=== PATIENT | male | born 1960 | race Caucasian/White ===

== ENCOUNTER 2016-11-29 11:06 | Inpatient (IN) ==
[2016-11-29] MEDS ORDERED: 0.9 % Sodium Chloride 1,000 ML IVC ONE ×2 (11:33→12:47)
[2016-11-29 11:41] LABS: Bilirubin,Urine Moderate (Negative); Blood,Urine Trace (Negative); Clarity,Urine Clear (Clear); Color,Urine Dark Yellow (Yellow); Glucose,Urine (UA) >=1000 mg/dL (Normal); Ketones,Urine >=160 mg/dL (Negative); Leukocyte Esterase,Urine Negative (Negative); Nitrite,Urine Negative (Negative); Protein,Urine 100 mg/dL (Neg-Trace); Specific Gravity,Urine > 1.030 (1.010-1.025)
[2016-11-29 11:43] LABS: Hyaline Casts,Urine None Seen per lpf (None-Few); RBC,Urine 0-3 per hpf (0-3); WBC,Urine 0-3 per hpf (0-3)
--- NOTE | 2016-11-29 11:44 | Emergency Department Note ---
Disposition Clinical Impression: Abdominal pain, Pneumonia, Diabetes, Sepsis, Abnormal urinalysis, Kidney stones , Constipation Disposition: Admitted As Inpatient Forms: ED Satisfaction Letter, Work/School Release General Adult HPI - General Chief complaint: ED Abdominal Pain Stated complaint: constipation x3days/abd pain/nausea/fever Source: patient Limitations: no limitations - History of Present Illness HPI Narrative: 56-year-old male reports emergency department complaining of no bowel movement for 3 days.. He reports he is usually very regular. She complains of mild abdominal pain. A fever is noted. There is no history of headache neck stiffness rash or convulsion or confusion no troubles walking talking hearing seeing or speaking. No chest pain or shortness of breath. The patient has had no vomiting but he has had some stool that his stool is been very loose and on occasion. He is not anticoagulated. He denies riley diarrhea. There is no history of back pain or urinary problems. The patient is not diabetic is not take any medication regularly. He denies any previous bowel surgery. He denies any history of abdominal surgery. He reports that having any problems with his bowels is highly unusual for him. Pain Scale: 3 - Related Data Home Medications Medication Instructions Recorded Confirmed No Known Home Drugs 11/29/16 11/29/16 Allergies Allergy/AdvReac Type Severity Reaction Status Date / Time No Known Allergies Allergy Verified 11/29/16 13:49 All systems ED: reviewed and negative except as stated. Past Medical History - Past Medical History Medical history: Reports: myocardial infarction, other Psychiatric history: Reports: no psych history - Social History Smoking Status: Never smoker Smokeless Tobacco Status: No Alcohol use: Reports: occasionally Drug use: Reports: none Physical Exam - General Limitations: no limitations General appearance: alert, in no apparent distress - Head Head exam: atraumatic, normocephalic, normal inspection - Eye Eye exam: Present: normal appearance, PERRL, EOMI. Absent: scleral icterus, conjunctival injection - ENT ENT exam: normal exam, normal oropharynx, mucous membranes moist, TM's normal bilaterally, normal external ear exam - Neck Neck exam: Present: normal inspection, full ROM, trachea midline - Chest Chest inspection: Present: normal inspection, symmetric chest wall rise. Absent : tenderness - Respiratory Respiratory exam: Present: normal lung sounds bilaterally. Absent: respiratory distress, wheezes, accessory muscle use, prolonged expiratory phase - Cardiovascular Cardiovascular exam: Present: regular rate, normal rhythm, normal heart sounds - Abdominal Exam Abdominal exam: Present: soft. Absent: distention, guarding, rebound, rigidity Abdominal tenderness: Present: diffuse, mild - Extremities Exam Extremities exam: Present: normal inspection, full ROM, normal capillary refill. Absent: tenderness, pedal edema, joint swelling, calf tenderness - Expanded Lower Extremity Exam Neurovascular/Tendon exam: Present: normal capillary refill. Absent: pulse deficit, motor deficit, sensory deficit, tendon deficit, extremity cold to touch , pallor - Back Exam Back exam: Present: normal inspection, full ROM. Absent: tenderness, CVA tenderness (R), CVA tenderness (L), muscle spasm, vertebral tenderness - Neurological Exam Neurological exam: Present: alert, oriented X3, CN II-XII intact. Absent: motor sensory deficit - Psychiatric Psychiatric exam: Present: normal affect, normal mood - Skin Skin exam: Present: warm, dry, intact, normal color. Absent: rash, cyanosis, diaphoresis, erythema, pallor, mottled Course Vital Signs Temperature 101.3 F H 11/29/16 11:09 Pulse Rate 116 11/29/16 11:09 Respiratory Rate 20 11/29/16 11:09 Blood Pressure 138/82 11/29/16 11:09 O2 Sat by Pulse Oximetry 95 11/29/16 11:09 Temperature 101.3 F H 11/29/16 11:09 Pulse Rate 117 11/29/16 12:06 Respiratory Rate 18 11/29/16 12:06 Blood Pressure 151/95 11/29/16 12:06 O2 Sat by Pulse Oximetry 96 11/29/16 12:06 Oxygen Delivery Oxygen Delivery Room Air Medical Decision Making - [facility] Narrative Medical decision making narrative: The patient is tachycardic and tachypnea, he has leukocytosis and a defined source of infection in the lung. He appears to meet SIRS/sepsis criteria. Lactic acid negative. IV Levaquin ordered as well as 2 L of IV fluid. CT abdomen and pelvis reveals kidney stones but no riley abnormality otherwise. Based on the patient's diabetes, age, SIRS/sepsis, apparent pneumonitis, and concerns for constipation abdominal pain, I felt would be appropriate to admit the patient to the hospital. I discussed the case with the hospitalist on-call who has accepted the patient to their care. The patient is agreeable. - Lab Data Lab results reviewed: Yes I reviewed the patient's lab results. Result diagrams: 11/29/16 11:58 11/29/16 11:58 Lab Results 11/29/16 11/29/16 11/29/16 Range/Units 11:30 11:58 11:58 WBC 12.3 H (4.3-11.1) K/mcL RBC 5.14 (4.19-5.50) M/mcL Hgb 16.4 (12.9-16.9) g/dL Hct 45.0 (37.5-50.1) % MCV 87.5 (83.0-100.0) fL MCH 31.9 (28.0-33.3) pg MCHC 36.4 H (31.6-35.5) g/dL RDW 11.9 (11.5-14.5) % Plt Count 169 (140-400) K/mcL MPV 11.1 (9.4-12.4) fL Seg Neutrophils % 82.0 % Lymphocytes % 8.0 % Monocytes % 10.0 % Neutrophils # 10.1 H (1.6-8.9) K/mcL Lymphocytes # 1.0 (0.6-4.6) K/mcL Monocytes # 1.2 (0.0-1.3) K/mcL Reactive Lymphocytes Present A (Not Present) Platelet Estimate Normal (Normal) Large Platelets Present A (Not Present) Immature Plt Fraction 12.5 H (1.1-6.1) % PT 14.1 H (9.4-12.1) Seconds INR 1.3 APTT 25.7 L (26.0-36.0) Seconds Sodium (136-145) mEq/L Potassium (3.5-4.5) mEq/L Chloride (98-109) mEq/L Carbon Dioxide (19-29) mEq/L BUN (8-26) mg/dL Creatinine (0.72-1.25) mg/dL Est GFR ( Amer) (> 60) Est GFR (Non-Af Amer) (> 60) BUN/Creatinine Ratio (6-26) Glucose (70-99) mg/dL Calculated Osmolality (280-300) Lactic Acid (0.5-2.2) mmol/L Calcium (8.6-10.8) mg/dL Total Bilirubin (0.2-1.2) mg/dL Direct Bilirubin (0.0-0.5) mg/dL Indirect Bilirubin (0.0-1.2) mg/dL AST (5-34) Units/L ALT (0-55) Units/L Alkaline Phosphatase (38-126) Units/L Troponin I (0-0.03) ng/mL C-Reactive Protein (Less than 5) mg/L Serum Total Protein (6.0-8.3) g/dL Albumin (3.5-5.0) g/dL Globulin (2.4-3.5) g/dL Albumin/Globulin Ratio (1.1-2.2) Lipase (8-78) Units/L Urine Color Dark Yellow (Yellow) Urine Clarity Clear (Clear) Urine pH 6.0 (5.0-8.0) pH Units Ur Specific [place] > 1.030 H (1.010-1.025) Urine Protein 100 H (Neg-Trace) mg/dL Urine Glucose (UA) >=1000 H (Normal) mg/dL Urine Ketones >=160 H (Negative) mg/dL Urine Blood Trace H (Negative) Urine Nitrite Negative (Negative) Urine Bilirubin Moderate H (Negative) Urine Urobilinogen 2.0 H (Normal) mg/dL Ur Leukocyte Esterase Negative (Negative) Urine Microscopic RBC 0-3 (0-3) per hpf Urine Microscopic WBC 0-3 (0-3) per hpf Ur Squamous Epith Cells Few (None-Few) per lpf Urine Bacteria Few (None-Few) per hpf Hyaline Casts None Seen (None-Few) per lpf Ur Culture Indicated? NO (NO) 11/29/16 11/29/16 11/29/16 Range/Units 11:58 11:58 11:58 WBC (4.3-11.1) K/mcL RBC (4.19-5.50) M/mcL Hgb (12.9-16.9) g/dL Hct (37.5-50.1) % MCV (83.0-100.0) fL MCH (28.0-33.3) pg MCHC (31.6-35.5) g/dL RDW (11.5-14.5) % Plt Count (140-400) K/mcL MPV (9.4-12.4) fL Seg Neutrophils % % Lymphocytes % % Monocytes % % Neutrophils # (1.6-8.9) K/mcL Lymphocytes # (0.6-4.6) K/mcL Monocytes # (0.0-1.3) K/mcL Reactive Lymphocytes (Not Present) Platelet Estimate (Normal) Large Platelets (Not Present) Immature Plt Fraction (1.1-6.1) % PT (9.4-12.1) Seconds INR APTT (26.0-36.0) Seconds Sodium 128 L (136-145) mEq/L Potassium 3.7 (3.5-4.5) mEq/L Chloride 95 L (98-109) mEq/L Carbon Dioxide 20 (19-29) mEq/L BUN 14 (8-26) mg/dL Creatinine 0.86 (0.72-1.25) mg/dL Est GFR ( Amer) > 60 (> 60) Est GFR (Non-Af Amer) > 60 (> 60) BUN/Creatinine Ratio 16 (6-26) Glucose 231 H (70-99) mg/dL Calculated Osmolality 274 L (280-300) Lactic Acid 1.1 (0.5-2.2) mmol/L Calcium 9.1 (8.6-10.8) mg/dL Total Bilirubin 1.7 H (0.2-1.2) mg/dL Direct Bilirubin 0.8 H (0.0-0.5) mg/dL Indirect Bilirubin 0.9 (0.0-1.2) mg/dL AST 23 (5-34) Units/L ALT 36 (0-55) Units/L Alkaline Phosphatase 153 H (38-126) Units/L Troponin I 0.01 (0-0.03) ng/mL C-Reactive Protein 285 H (Less than 5) mg/L Serum Total Protein 7.4 (6.0-8.3) g/dL Albumin 3.4 L (3.5-5.0) g/dL Globulin 4.0 H (2.4-3.5) g/dL Albumin/Globulin Ratio 0.9 L (1.1-2.2) Lipase 13 (8-78) Units/L Urine Color (Yellow) Urine Clarity (Clear) Urine pH (5.0-8.0) pH Units Ur Specific [place] (1.010-1.025) Urine Protein (Neg-Trace) mg/dL Urine Glucose (UA) (Normal) mg/dL Urine Ketones (Negative) mg/dL Urine Blood (Negative) Urine Nitrite (Negative) Urine Bilirubin (Negative) Urine Urobilinogen (Normal) mg/dL Ur Leukocyte Esterase (Negative) Urine Microscopic RBC (0-3) per hpf Urine Microscopic WBC (0-3) per hpf Ur Squamous Epith Cells (None-Few) per lpf Urine Bacteria (None-Few) per hpf Hyaline Casts (None-Few) per lpf Ur Culture Indicated? (NO) - Radiology Data Radiology results reviewed: Yes I reviewed the patient's radiology results.
[2016-11-29 12:07] LABS: Bacteria,Urine Few per hpf (None-Few); Squamous Epithelial Cell,Urine Few per lpf (None-Few)
[2016-11-29 12:17] LABS: Hemoglobin 16.4 g/dL (12.9-16.9); Immature Platelets 12.5 % (1.1-6.1); Mean Corpuscular HGB Conc 36.4 g/dL (31.6-35.5); Mean Corpuscular Hemoglobin 31.9 pg (28.0-33.3); Mean Corpuscular Volume 87.5 fL (83.0-100.0); Mean Platelet Volume 11.1 fL (9.4-12.4); Platelet Count 169 K/mcL (140-400); Red Blood Count 5.14 M/mcL (4.19-5.50); Red Cell Distribution Width 11.9 % (11.5-14.5)
[2016-11-29 12:22] LABS: INR 1.3; Prothrombin Time 14.1 Seconds (9.4-12.1)
[2016-11-29 12:25] LABS: Activated Partial Thrombo Time 25.7 Seconds (26.0-36.0)
[2016-11-29 12:32] LABS: Alanine Aminotransferase 36 Units/L (0-55); Albumin 3.4 g/dL (3.5-5.0); Albumin/Globulin Ratio 0.9 (1.1-2.2); Alkaline Phosphatase 153 Units/L (38-126); Aspartate Amino Transferase 23 Units/L (5-34); BUN/Creatinine Ratio 16 (6-26); Bilirubin,Direct 0.8 mg/dL (0.0-0.5); Bilirubin,Indirect 0.9 mg/dL (0.0-1.2); Bilirubin,Total 1.7 mg/dL (0.2-1.2); Blood Urea Nitrogen 14 mg/dL (8-26); Calcium 9.1 mg/dL (8.6-10.8); Carbon Dioxide 20 mEq/L (19-29); Chloride 95 mEq/L (98-109); Glucose 231 mg/dL (70-99); Lipase 13 Units/L (8-78); Osmolality,Calculated 274 (280-300); Potassium 3.7 mEq/L (3.5-4.5); Sodium 128 mEq/L (136-145); Total Protein 7.4 g/dL (6.0-8.3); eGFR For African Americans > 60 (> 60); eGFR For Non-African Americans > 60 (> 60)
[2016-11-29 12:35] LABS: Large Platelets Present (Not Present); Monocytes # 1.2 K/mcL (0.0-1.3); Neutrophils # 10.1 K/mcL (1.6-8.9); Platelet Estimate Normal (Normal); Reactive Lymphocytes Present (Not Present)
[2016-11-29] MEDS ORDERED: Levofloxacin 750 MG/150 ML 750 MG/150 ML BAG IVPB ONE (12:47)
[2016-11-29 12:57] LABS: C-Reactive Protein 285 mg/L (Less than 5)
[2016-11-29] MEDS ORDERED: Ondansetron 4 MG/2 ML VIAL IVP PRN (14:13)
[2016-11-29] MEDS ORDERED: *HR* HYDROcodone/Acet 5/325 mg TABLET PO PRN (14:13)
[2016-11-29] MEDS ORDERED: Naloxone 0.4 MG/ML INJ IVP PRN (14:13)
[2016-11-29] MEDS ORDERED: Acetaminophen 325 MG TABLET PO PRN (14:13)
[2016-11-29] MEDS ORDERED: Ipratropium/Albuterol Neb 3 ML IH SCH (16:00)
[2016-11-29] MEDS ORDERED: Ipratropium/Albuterol Neb 3 ML IH PRN (16:40)
[2016-11-29] MEDS ORDERED: Lactulose Oral Soln 20 GM/30 ML UDC PO PRN (16:40)
--- NOTE | 2016-11-29 16:56 | Internal Med History&Physical ---
Date of Encounter: 11/29/16 Time of Encounter: 16:41 Assessment and Plan (1) Sepsis Current visit: Yes Status: Acute Admit the pt into Tele He does meet sepsis criteria with Fever T max 101.3, elevated WBC, Source of inf as PNA and Tachycardia Given 2 lit NS bolus in ER Blood cx drawn in the ER Qualifiers: Qualified Code(s): A41.9 - Sepsis, unspecified organism (2) Pneumonia Current visit: Yes Status: Acute Mostly bacterial Reviewed CXR by myself showed patchy infiltrate in RML started on emprical abx Levofloxacin will check strep and legionella titers, check Mycoplasma cont Duoneb PRN no need of steroids place him on O2 Qualifiers: Laterality: right Lung location: middle lobe of lung Qualified Code(s): J18.1 - Lobar pneumonia, unspecified organism (3) Sinus tachycardia Current visit: Yes Status: Acute Due to sepsis / PNA cont IV fluids placed him on Tele (4) Kidney stones Current visit: Yes Status: Acute He might just passed stone, also his kidney stones contributing for constipation too Consulted Urology cont close monitoring UA - No bacteria However CT of abd consistent with cystitis cont abx (5) Constipation Current visit: Yes Status: Acute started him on stool softeners Qualifiers: Qualified Code(s): K59.00 - Constipation, unspecified (6) Diabetes Current visit: Yes Status: Chronic will check HbA1C in AM started him on ISS Qualifiers: Qualified Code(s): E11.9 - Type 2 diabetes mellitus without complications Internal Medicine - H&P: HPI Chief complaint: Constipation Admitted From: Emergency Dept Plans for Post Hospital Care: Home History of present illness: 56-year-old male with known PMH [place], Morbid obesity pt presented to emergency department complaining of no bowel movement for 3 days.. He reports he is usually very regular. He did complain of mild abdominal pain. No chest pain or shortness of breath. The patient has had no vomiting but he has had some watery stool. He denied any back pain or urinary problems. He denies any previous bowel surgery. He denies any history of abdominal surgery. He denied any urinary complaints. No sick contacts. He had CT of abd done in the ER which showed 2 mm non obstructing calculus and a non specific 8mm stone in the urinary bladder adjacent to UVJ, also showed RML PNA. Past Med Surg Social Fam HX - Past Medical History Medical history: myocardial infarction, other Psychiatric history: no psych history - Social History Smoking Status: Never smoker Smokeless Tobacco Status: No Alcohol use: heavy (Had last alcohol a week ago) Drug use: none - Additional Family History Additional family history: Reviewed.. And non contribuitory to currnet problem. Denied any heart problems Internal Medicine - H&P: Meds No Known Home Drugs 11/29/16 [History] 3 Allergy/AdvReac Type Severity Reaction Status Date / Time No Known Allergies Allergy Verified 11/29/16 13:49 All Systems PM: A 10-system review of systems was performed and is negative for pertinent findings except as documented above in the HPI. Review of systems: All systems reviewed everything is benign except the systems and symptoms I mentioned in HPI - Constitutional Vitals: Temp Pulse Resp BP Pulse Ox 98.3 F 115 18 142/86 95 11/29/16 15:39 11/29/16 15:39 11/29/16 16:14 11/29/16 15:39 11/29/16 16:14 General appearance: Present: A&O X 3, no acute distress, answers questions appropriately - Head Head exam: Present: atraumatic, normal inspection - Respiratory Respiratory exam: Present: decreased breath sounds, wheezes (mild). Absent: rales, respiratory distress, rhonchi - Cardiovascular Cardiovascular exam: Present: +S1, +S2, tachycardia. Absent: systolic murmur - GI/Abdominal GI/Abdominal exam: Present: distended, hypoactive bowel sounds, soft. Absent: rebound, rigid, tenderness - Extremities Exam Extremities exam: Absent: calf tenderness, pedal edema, tenderness - Back Exam Back exam: Absent: CVA tenderness (L), CVA tenderness (R), rash noted - Neurological Exam Neurological exam: Present: alert, oriented X3 - Psychiatric Psychiatric exam: Present: normal affect, normal mood Internal Med - H&P Results - Labs CBC & Chem 7: 11/29/16 11:58 11/29/16 11:58
[2016-11-29] MEDS ORDERED: Dextrose Gel 15 GM PO PRN ×2 (17:07)
[2016-11-29] MEDS ORDERED: D5% in Water 1,000 ML IVC PRN (17:07)
[2016-11-29] MEDS ORDERED: *HR* Dextrose 50 % in Water (Syg) 50 ML SYRINGE IVP PRN (17:07)
[2016-11-29] MEDS: 0.9 % Sodium Chloride 1,000 ML IVC SCH (17:34)
[2016-11-29 18:09] LABS: Hemoglobin A1C 9.4 %
[2016-11-29] MEDS ORDERED: Famotidine 20 MG TABLET PO SCH (21:00)
[2016-11-29] MEDS ORDERED: Insulin LISPRO 300 UNITS/3 ML VIAL SQ SCH (21:00)
[2016-11-30] MEDS: 0.9 % Sodium Chloride 1,000 ML IVC SCH (01:55)
[2016-11-30 05:40] LABS: Basophils % 0.3 %; Hematocrit 40.4 % (37.5-50.1); Immature Granulocytes % 0.8 % (0-4); Lymphocytes # 0.9 K/mcL (0.6-4.6); Lymphocytes % 9.5 %; Mean Corpuscular HGB Conc 36.1 g/dL (31.6-35.5); Mean Corpuscular Hemoglobin 31.6 pg (28.0-33.3); Mean Corpuscular Volume 87.4 fL (83.0-100.0); Monocytes # 1.4 K/mcL (0.0-1.3); Monocytes % 14.8 %; Neutrophils # 6.8 K/mcL (1.6-8.9); Platelet Count 130 K/mcL (140-400); Red Blood Count 4.62 M/mcL (4.19-5.50); Red Cell Distribution Width 12.1 % (11.5-14.5); Segmented Neutrophils % 74.6 %
[2016-11-30 05:41] LABS: Hemoglobin 14.6 g/dL (12.9-16.9)
[2016-11-30 05:54] LABS: BUN/Creatinine Ratio 12 (6-26); Blood Urea Nitrogen 9 mg/dL (8-26); Calcium 8.3 mg/dL (8.6-10.8); Carbon Dioxide 17 mEq/L (19-29); Chloride 100 mEq/L (98-109); Glucose 187 mg/dL (70-99); Osmolality,Calculated 272 (280-300); Potassium 3.4 mEq/L (3.5-4.5); Sodium 129 mEq/L (136-145); eGFR For African Americans > 60 (> 60); eGFR For Non-African Americans > 60 (> 60)
[2016-11-30] MEDS ORDERED: Insulin LISPRO 300 UNITS/3 ML VIAL SQ SCH ×2 (06:00→07:30)
[2016-11-30] MEDS ORDERED: *HR* Enoxaparin 40 MG/0.4 ML SYRINGE SQ SCH (06:00)
[2016-11-30] MEDS ORDERED: Acetaminophen 325 MG TABLET PO PRN (06:18)
[2016-11-30 07:24] VITALS: BP 126/79
--- NOTE | 2016-11-30 08:44 | Urology - Consult Note ---
Date of Encounter: 11/30/16 Time of Encounter: 08:40 - Assessment and Plan (1) Ureteral calculi Current Visit: Yes Status: Acute Assessment and plan: I personally reviewed the CT images. I believe that the 7 mm stone is at the right ureteral vesicle junction. This was communicated to the patient. He does have potential to spontaneously pass the stone was surgical intervention. I suspect it is the cause of his urinary symptoms and potentially his constipation. I gave him the option of proceeding with a stone extraction today. He desires attempts at trial of passage. I recommend follow-up in 2-4 weeks. At that time we will check his urinalysis for hematuria. If he is unsure regarding the passage of the stone will repeat a CT pelvis. If he he becomes ill with significant symptoms prior to the outpatient visit a needs to call the office or go to the emergency room. I recommend tamsulosin daily as it could help with trial of passage Urology CN:HPI Consult date: 11/30/16 Reason for consult Urology: Other History of present illness: New patient to the urology practice. Admitted for constipation and pneumonia. CT scan reveals a 7 mm right ureteral vesicle junction stone. He's had no significant pain over the last 24 hours. He does report increasing urgency, frequency and pelvic pressure over the last week. No history of stones. Past Med Surg Social Fam HX - Past Medical History Medical history: myocardial infarction, other Psychiatric history: no psych history - Social History Smoking Status: Never smoker Smokeless Tobacco Status: No Alcohol use: occasionally Drug use: none Medications and Allergies No Known Home Drugs 11/29/16 [History] 3 Allergy/AdvReac Type Severity Reaction Status Date / Time No Known Allergies Allergy Verified 11/29/16 13:49 Review of Systems - Constitutional fever(s) - EENT Nose, mouth and throat: no dizziness - Cardiovascular no chest pain - Respiratory no cough - Gastrointestinal abdominal pain, nausea - Genitourinary urinary frequency - Integumentary no erythema - Neurological no confusion - Psychiatric no anxiety - Hematologic/Lymphatic no easy bleeding - Allergic/Immunologic no throat swelling Exam Initial Vital Signs Temp Pulse Resp BP Pulse Ox 101.3 F H 116 20 138/82 95 11/29/16 11:09 11/29/16 11:09 11/29/16 11:09 11/29/16 11:09 11/29/16 11:09 - General physical appearance Present: well developed, no distress - Eyes Present: PERRL - ENT Present: normal nares - Neck Present: no masses - Respiratory Present: normal respiratory effort - Cardiovascular Cardiovascular exam IM: RRR - Abdomen Abdomen: Present: soft - Integumentary Present: no rash - Neurologic Present: normal coordination. Absent: disoriented, confused - Additional Findings No CVA tenderness Urology Results - Labs 11/30/16 05:19 11/30/16 05:19 Abnormal lab results MCHC 36.1 g/dL (31.6-35.5) H 11/30/16 05:19 Plt Count 130 K/mcL (140-400) L 11/30/16 05:19 Monocytes # 1.4 K/mcL (0.0-1.3) H 11/30/16 05:19 Reactive Lymphocytes Present (Not Present) A 11/29/16 11:58 Large Platelets Present (Not Present) A 11/29/16 11:58 Immature Plt Fraction 12.5 % (1.1-6.1) H 11/29/16 11:58 PT 14.1 Seconds (9.4-12.1) H 11/29/16 11:58 APTT 25.7 Seconds (26.0-36.0) L 11/29/16 11:58 Sodium 129 mEq/L (136-145) L 11/30/16 05:19 Potassium 3.4 mEq/L (3.5-4.5) L 11/30/16 05:19 Carbon Dioxide 17 mEq/L (19-29) L 11/30/16 05:19 Glucose 187 mg/dL (70-99) H 11/30/16 05:19 Hemoglobin A1c 9.4 % (-5.6) H 11/29/16 11:58 Calculated Osmolality 272 (280-300) L 11/30/16 05:19 Calcium 8.3 mg/dL (8.6-10.8) L 11/30/16 05:19 Total Bilirubin 1.7 mg/dL (0.2-1.2) H 11/29/16 11:58 Direct Bilirubin 0.8 mg/dL (0.0-0.5) H 11/29/16 11:58 Alkaline Phosphatase 153 Units/L (38-126) H 11/29/16 11:58 C-Reactive Protein 285 mg/L (Less than 5) H 11/29/16 11:58 Albumin 3.4 g/dL (3.5-5.0) L 11/29/16 11:58 Globulin 4.0 g/dL (2.4-3.5) H 11/29/16 11:58 Albumin/Globulin Ratio 0.9 (1.1-2.2) L 11/29/16 11:58 Ur Specific [place] > 1.030 (1.010-1.025) H 11/29/16 11:30 Urine Protein 100 mg/dL (Neg-Trace) H 11/29/16 11:30 Urine Glucose (UA) >=1000 mg/dL (Normal) H 11/29/16 11:30 Urine Ketones >=160 mg/dL (Negative) H 11/29/16 11:30 Urine Blood Trace (Negative) H 11/29/16 11:30 Urine Bilirubin Moderate (Negative) H 11/29/16 11:30 Urine Urobilinogen 2.0 mg/dL (Normal) H 11/29/16 11:30 Diabetes panel 11/30/16 Range/Units 05:19 Sodium 129 L (136-145) mEq/L Potassium 3.4 L (3.5-4.5) mEq/L Chloride 100 (98-109) mEq/L Carbon Dioxide 17 L (19-29) mEq/L BUN 9 (8-26) mg/dL Creatinine 0.75 (0.72-1.25) mg/dL Glucose 187 H (70-99) mg/dL Calcium 8.3 L (8.6-10.8) mg/dL Calcium panel 11/30/16 Range/Units 05:19 Calcium 8.3 L (8.6-10.8) mg/dL Pituitary panel 11/30/16 Range/Units 05:19 Sodium 129 L (136-145) mEq/L Potassium 3.4 L (3.5-4.5) mEq/L Chloride 100 (98-109) mEq/L Carbon Dioxide 17 L (19-29) mEq/L BUN 9 (8-26) mg/dL Creatinine 0.75 (0.72-1.25) mg/dL Glucose 187 H (70-99) mg/dL Calcium 8.3 L (8.6-10.8) mg/dL Adrenal panel 11/30/16 Range/Units 05:19 Sodium 129 L (136-145) mEq/L Potassium 3.4 L (3.5-4.5) mEq/L Chloride 100 (98-109) mEq/L Carbon Dioxide 17 L (19-29) mEq/L BUN 9 (8-26) mg/dL Creatinine 0.75 (0.72-1.25) mg/dL Glucose 187 H (70-99) mg/dL Calcium 8.3 L (8.6-10.8) mg/dL All other labs normal. Consult Discharge Plan - Plan Referrals: NONE,PCP [Primary Care Provider] - Bhumi Green [Family Provider] -
[2016-11-30] MEDS ORDERED: Levofloxacin 750 MG/150 ML 750 MG/150 ML BAG IVPB SCH (09:00)
--- NOTE | 2016-11-30 09:00 | Discharge Summary ---
Date of Encounter: 11/30/16 Time of Encounter: 08:30 - Discharge Diagnosis (1) Sepsis Priority: Primary Status: Acute Qualifiers: Qualified Code(s): A41.9 - Sepsis, unspecified organism (2) Pneumonia Priority: Primary Status: Acute Qualifiers: Laterality: right Lung location: middle lobe of lung Qualified Code(s): J18.1 - Lobar pneumonia, unspecified organism (3) Sinus tachycardia Priority: Primary Status: Acute (4) Kidney stones Priority: Primary Status: Acute (5) Constipation Priority: Secondary Status: Acute Qualifiers: Qualified Code(s): K59.00 - Constipation, unspecified (6) Diabetes Priority: Secondary Status: Chronic Qualifiers: Qualified Code(s): E11.9 - Type 2 diabetes mellitus without complications - Discharge Medications Prescriptions: Aspirin Enteric Coated [Aspirin EC] 81 mg PO DAILY #30 tablet.dr Berg [Glipizide Xl] 5 mg PO BID #60 tab.er.24 Levofloxacin [Levaquin] 750 mg PO DAILY #3 tablet metFORMIN [Glucophage] 500 mg PO BIDWM #60 tablet Tamsulosin [Flomax] 0.4 mg PO DAILY #15 cap.er.24h Home Medications: Aspirin Enteric Coated [Aspirin EC] 81 mg PO DAILY #30 tablet. 11/30/16 [Rx] GlipiZIDE [Glipizide Xl] 5 mg PO BID #60 tab.er.24 11/30/16 [Rx] Tamsulosin [Flomax] 0.4 mg PO DAILY #15 cap.er.24h 11/30/16 [Rx] metFORMIN [Glucophage] 500 mg PO BIDWM #60 tablet 11/30/16 [Rx] Levofloxacin [Levaquin] 750 mg PO DAILY #3 tablet 12/01/16 [Rx] Allergies/Adverse Reactions: 3 Allergy/AdvReac Type Severity Reaction Status Date / Time No Known Allergies Allergy Verified 11/29/16 13:49 Date of admission: 11/29/16 14:20 Primary care physician: PCP NONE Consults: 11/29/16 16:39 Consult to Urology [CONS] Routine Consulting Provider: Urology Yazmin Reason for Consult: Renal calculi Call Completed: Yes - Patient Status Disposition: Home, Self-Care Condition: Good Overall status at discharge: patient is back to baseline - Discharge Instructions Instructions: Diabetes Mellitus Type 2 in Adults (DC), Kidney Stones (GEN) Follow Up With: NONE,PCP [Primary Care Provider] - Bhumi Green [Family Provider] - Hugo Jacob MD [Partnered Physician] - Additional Instructions: Need o f/u with Dr. Jacob Urology in 2-3 weeks Need to f/u with PCP in one week - Diet and Activity Activity: increase activity as tolerated Diet: diabetic diet Hospital course: 56-year-old male with known PMH [place], Morbid obesity pt presented to emergency department complaining of no bowel movement for 3 days.. He reports he is usually very regular. He did complain of mild abdominal pain. No chest pain or shortness of breath. The patient has had no vomiting but he has had some watery stool. He denied any back pain or urinary problems. He denies any previous bowel surgery. He denies any history of abdominal surgery. He denied any urinary complaints. No sick contacts. He had CT of abd done in the ER which showed 2 mm non obstructing calculus and a non specific 8mm stone in the urinary bladder adjacent to UVJ, also showed RML PNA. Pt was admitted in the hospital for pneumonia and started him on IV fluids and empirical abx with Rocephin. He remained afebrile, his WBC trended dwn to normal. He still has little tachycardia. Pt was seen by urologist Dr. Jacob regarding his Ureter calculi at Rt UVJ. He offered for stone extraction today vs close monitoring with Flomax. Pt does not wanted to go for any surgical intervention, he wanted to watch fro a couple of weeks. Since he still has little tachy , I recommend him to stay in the hospital for one more days for IV hydration and close monitoring. however pt wants to go home. So recommend to keep hydrate himself well. Also I noticed he does have uncontrolled DM2 with HbA1C 9.4, he does not take any medications at home. I started him on Metformin 500mg BID and Glipizide 5mg BID and requested to f/u with PCP in one week. Also educated him about diet and life style modifications..Educated him about DM 2 and it's complications. - Time Spent with Patient Total time spent providing and/or coordinating discharge services: - Constitutional Vitals: Temp Pulse Resp BP Pulse Ox 97.6 F 104 15 126/79 96 10/21/17 07:21 11/30/16 07:21 11/30/16 07:21 11/30/16 07:21 11/30/16 07:21 General appearance: Present: A&O X 3, no acute distress, answers questions appropriately - Head Head exam: Present: atraumatic, normal inspection - Neck Neck exam general surgery: Present: supple - Respiratory Respiratory exam: Present: decreased breath sounds. Absent: rales, respiratory distress, rhonchi, wheezes - Cardiovascular Cardiovascular exam: Present: +S1, +S2, tachycardia (mild). Absent: systolic murmur - GI/Abdominal GI/Abdominal exam: Present: distended, normal bowel sounds, soft, no peritoneal signs. Absent: guarding, rebound, rigid, tenderness - Extremities Exam Extremities exam: Absent: calf tenderness, pedal edema, tenderness - Back Exam Back exam: Absent: CVA tenderness (L), CVA tenderness (R) - Neurological Exam Neurological exam: Present: alert, oriented X3 - Psychiatric Psychiatric exam: Present: normal affect, normal mood
--- NOTE | 2016-12-02 06:28 | Electrocardiograph Report ---
[facility] Document Agility Test Date: 2016-11-29 Pat Name: Kavon Leo Department: 103 Room: 2NE30 Gender: M [employer]: : 1960 Requested By: Eric Tiwari Order Number: [id number] Reading MD: Juan Carlos Carnes DO Measurements Intervals [place] Rate: 117 P: 33 MI: 152 QRS: 33 QRSD: 151 T: 22 QT: 350 QTc: 419 Interpretive Statements SINUS TACHYCARDIA INDETERMINATE AXIS RIGHT BUNDLE BRANCH BLOCK [120+ ms QRS DURATION, UPRIGHT V1, 40+ ms S IN I/aVL/V4/V5/V6] Electronically Signed On 12-02-2016 6:26:46 EDT by Juan Carlos Carnes DO
[2016-12-04 09:58] LABS: Mycoplasma pneumoniae IgG 0.71 U/L (<=0.09)
== END 2016-11-30 10:16 | disposition home or self-care (01) | DRG 871 ==
LOC: EMEROO 11:06 → 2NENU 11:06
PROVIDERS: ADMIT Internal Medicine; ATTEND Internal Medicine